=== PATIENT | male | born 1995 | race Caucasian/White ===

== ENCOUNTER 2025-02-07 14:45 | Emergency (ER) | payer OTHER, SELFPAY ==
[2025-02-07 14:53] VITALS: BP 129/77
[2025-02-07 16:25] VITALS: BMI 23.8
--- NOTE | 2025-02-07 16:41 | ED.SKININJ ---
HPI-Injury
General
Chief Complaint: Skin Surface Trauma
Source: patient
Exam Limitations: none
Time Seen by Provider: 02/07/25 16:20
History of Present Illness-Injury
Initial Injury comments:
30-year-old male presents with laceration to left thumb he sustained today at the office. 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 Unknown last tetanus but he believes it is up-to-date. He notes a flap type laceration. No other complaints.
Phy Exam
Physical Exam
Physical Exam:
General: Well-appearing male no acute respiratory distress
Skin: Half a centimeter superficial flap type laceration distal portion left thumb but does involve the distal portion of the nail. Edges are well-approximated no significant bleeding tendon involvement or bony involvement
Extremities: No cyanosis
Course
Vital Signs
Initial and Last Documented VS:
Initial Vital Signs
Temp Pulse Resp BP Pulse Ox
97.9 F 68 20 129/77 99
02/07/25 14:53 02/07/25 14:53 02/07/25 14:53 02/07/25 14:53 02/07/25 14:53
Last Documented Vital Signs
Temp Pulse Resp BP Pulse Ox
97.9 F 68 20 129/77 99
02/07/25 14:53 02/07/25 14:53 02/07/25 14:53 02/07/25 14:53 02/07/25 14:53
MDM/Problems Addressed
Differential Diagnosis Includes:
Flap type laceration distal portion left thumb. This was irrigated with saline and dried held in approximation with benzoin and Steri-Strips.
Wound care instructions were given. Offered tetanus vaccine however he believes it is up-to-date and follow-up with family doctor for this.
*Pulse Oximetry
SaO2: 99
Oxygen Mode of Delivery: Room air
Patient hypoxic: no
*Critical Care Note
Total Time (30-74mins, 75-104mins- exclusive of procedures): Not Applicable
ED Attending Note
-
Portions of this chart may have been created with voice recognition software.� Occasional wrong word or��sound alike� substitutions may have occurred due to the inherent limitations of voice recognition software.
Discharge Plan
Departure
Patient Disposition: Home (Routine Discharge)
Date of Disposition: 02/07/25
Time of Disposition: 16:43
Patient with high blood pressure during this ER visit?: No
Discharge Problem:
Laceration
Instructions: Wound Care (DC)
Activity Restrictions/Additional Instructions:
The Steri-Strips will fall off on their own. Replace as needed. Return if needed otherwise
Interventions
Interventions:
*Risk Screen - Suicide Last Done: 02/07/25 14:53
*General Assessment Last Done: 02/07/25 14:53
*Neglect/Abuse Screening Last Done: 02/07/25 14:53
*ED COVID-19 Vaccine History Last Done: 02/07/25 16:25
*ED Influenza Vaccine History Last Done: 02/07/25 16:25
[facility] Fall Risk Assessment Tool Last Done: 02/07/25 16:25
ED-Skin Assessment Last Done: 02/07/25 16:25
Discharge Date and Time
Print Language: BELGIAN
== END 2025-02-07 17:09 | disposition home or self-care (01) ==
LOC: EMR 14:45
PROVIDERS: EMERGENCY PHYSICIAN Emergency Medicine; FAMILY PHYSICIAN Family Medicine
DX: S61.012A Laceration without foreign body of left thumb without damage to nail, initial encounter (principal); W45.8XXA Other foreign body or object entering through skin, initial encounter
CPT/HCPCS: 99282